=== PATIENT | male | born 1985 | race Caucasian/White ===

== ENCOUNTER 2016-10-05 00:21 | Emergency (ER) | payer SELFPAY ==
--- NOTE | 2016-10-05 19:54 | ER ---
ADMIT: 10/05/2016 RM/LOC: ER [facility] MR#: [id number] [address] [id number] TAHMINAJAM NICEGAIL Delacruz [address] [facility] [address] [place] [address] Emergency Room Report SEX: M AGE: 31 : 1985 DATE: 10/05/2016 Patient is a 31-year-old male, fell and injured his left hand. Exam consistent with boxer's type injury though patient denies assault. X-ray confirms spiral fracture proximal third metacarpal with no angulation or rotation. No closed fist injury otherwise noted. Treated with 3rd, 4th, and 5th metacarpal well-molded splint, ice, rest, sling, hydrocodone 5/325 as needed #20 plus 6. Follow up with Dr. Young this week. Tony Carrillo MD/ jorge a JOB #: [id number] CC: Tony Carrillo MD, Attending Physician Ceasar Young MD, Family Physician Ceasar Young MD
--- NOTE | 2016-10-11 15:59 | ER ---
ADMIT: 10/05/2016 RM/LOC: ER [facility] MR#: [id number] [id number] [place], [place] [id number] TAHMINAKHRISLuis ELOISE RITA Delacruz [address] [facility] [address] [place] [address] Emergency Room Report SEX: M AGE: 31 : 1985 DATE: 10/05/2016 ADDENDUM: I received a minor discrepancy report from Radiology regarding the hand x-ray that was done on the patient. I believe the initial report was that he had a 3rd metacarpal fracture. The radiology report confirms there is a 3rd metacarpal fracture, but notes there is also a hairline 4th metacarpal fracture. I reviewed the x-ray and the chart. It appears that the patient was placed in an appropriate splint for the fractures that were seen and is given followup with Orthopedics. There is no change that would have made in management at this time. Ceasar Menchaca MD/ jorge a JOB #: [id number] CC: Tony Carrillo MD, Attending Physician Ceasar Young MD, Family Physician
== END 2016-10-05 01:30 | disposition home or self-care (01) ==
LOC: ER 00:21
PROC: 2W3FX1Z Immobilization of Left Hand using Splint (ICD-10-PCS; principal; 2016-10-05)
DX: S62.303A Unspecified fracture of third metacarpal bone, left hand, initial encounter for closed fracture (principal); S62.305A Unspecified fracture of fourth metacarpal bone, left hand, initial encounter for closed fracture; W18.30XA Fall on same level, unspecified, initial encounter